=== PATIENT | male | born 2000 | race Caucasian/White ===

== ENCOUNTER 2021-10-12 08:04 | Emergency (ER) | payer SELFPAY ==
[~2021-10-12] VITALS: Ht 172.7 cm; Wt 70.5 kg
[2021-10-12 08:11] VITALS: TEMP 97.7
[2021-10-12 08:43] LABS: BASO % 0.4 % (0.0-2.0); EOS # 0.2 K/mm3 (0.0-0.7); EOS % 2.2 % (0.0-4.0); GRAN # 5.2 K/mm3 (1.4-6.5); GRAN % 62.6 % (42.2-75.2); HEMATOCRIT 42.9 % (42.0-52.0); HEMOGLOBIN 14.2 g/dl (13.5-18.0); LYMPH # 2.1 K/mm3 (1.2-3.4); LYMPH % 24.9 % (20.0-51.0); MEAN CELL VOLUME 83 fl (80.0-100.0); MEAN CORPUSCULAR HEMOGLOBIN 27 pg (27-31); MEAN CORPUSCULAR HGB CONC 33 g/dl (33.0-37.0); MEAN PLATELET VOLUME 10.3 fl (7.4-10.4); MONO # 0.8 K/mm3 (0.1-0.6); MONO % 9.4 % (1.7-9.3); PLATELET COUNT 242 K/mm3 (130-400); RED BLOOD COUNT 5.18 M/mm3 (4.20-5.60)
[2021-10-12 08:58] LABS: ALBUMIN 4.3 gm/dL (3.5-5.0); BILIRUBIN,TOTAL 0.5 mg/dL (0.2-1.2); CREATININE, serum 0.93 mg/dL (0.72-1.25); POTASSIUM 4.3 mmol/L (3.5-4.5); TOTAL PROTEIN 6.8 gm/dL (6.2-8.1)
[2021-10-12] MEDS ORDERED: BACTRIM DS 8001 TAB PO (09:37)
[2021-10-12] MEDS ORDERED: NORCO 325 MG-51 TAB PO (09:37)
[2021-10-12 09:52] VITALS: BP 108/61; PULSE 72
[2021-10-12 09:54] LABS: MONOSCREEN NEGATIVE
[2021-10-12 10:02] LABS: STREP SCREEN NEGATIVE
[2021-10-16] MEDS ORDERED: CLEOCIN HCL300 MG PO (07:46)
== END 2021-10-12 09:53 | disposition home or self-care (01) ==
LOC: COL.ER 08:04
PROVIDERS: Emergency Medicine
DX: R59.0 Localized enlarged lymph nodes (principal); F17.220 Nicotine dependence, chewing tobacco, uncomplicated
CPT/HCPCS: J1885; Q9967